=== PATIENT | male | born 1945 | race Caucasian/White ===

== ENCOUNTER 2020-07-29 14:37 | Emergency (ER) | payer MEDICARE ==
[~2020-07-29] VITALS: Ht 175.3 cm; Wt 89.8 kg
[2020-07-29] MEDS ORDERED: Bamlanivimab Fact Sheet MISC ONE (14:45)
[2020-07-29] MEDS ORDERED: Bamlanivimab 700 MG in NS 110 ML IVPB SCH (15:00)
--- NOTE | 2020-07-29 15:19 | NUR ---
ED Nurse Note: Pt was tested COVID + today. Pt started having symptoms 3 days ago. HE had cough, bodyaches, chills. Denies NVD. Pt is alert nad orientedx4, ambulatory. IV line started. He has been seen by [facility].
[2020-07-29 15:21] VITALS: BP 125/83
--- NOTE | 2020-07-29 15:45 | Emergency Room Report ---
History of Present Illness General Chief Complaint: Upper Respiratory Illness Source: Patient Present Illness HPI 74-year-old male pmhx of DM presents with fatigue, chills, loss of smell, recent diagnosis of covid 19, no aggravating or alleviating factors severity is moderate, constant. Patient presents for monoclonal antibody. 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 COVID-19 Screening: Positive COVID-19 COVID-19 Testing Source: nasal Patient History Past Medical History: see triage record Reviewed Nursing Documentation: PMH: Agreed; PSxH: Agreed Nursing Documentation-PMH Past Medical History: No History, Except For Hx Diabetes: Yes Review of Systems All Other Systems: negative except mentioned in HPI Physical Exam Vital Signs Date Time Temp Pulse Resp B/P (MAP) Pulse Ox O2 Delivery O2 Flow Rate FiO2 07/29/20 15:01 98.2 88 17 133/87 (102) 97 Room Air 07/29/20 15:21 98 Sp02 EP Interpretation: reviewed, normal General Appearance: well appearing, no apparent distress, alert Head: normocephalic, atraumatic Eyes: bilateral eye PERRL, bilateral eye EOMI ENT: uvula midline, moist mucus membranes Neck: supple, thyroid normal, supple/symm/no masses Respiratory: lungs clear, no respiratory distress, no retraction, no accessory muscle use Cardiovascular #1: normal peripheral pulses, regular rate, rhythm, no edema, no gallop, no murmur Gastrointestinal: non tender, soft, no guarding, no rebound Musculoskeletal: normal inspection Neurologic: alert, oriented x3 Psychiatric: mood/affect normal Skin: no rash, warm/dry Medical Decision Making Diagnostic Impression: Primary Impression: COVID-19 ER Course 74 year old male presents for monoclonal antibody therapy Patient with Covid, patient tolerated monoclonal infusion without any side effects Patient will follow up with his PCP disposition home with return precautions Isolation precautions Last Vital Signs Date Time Temp Pulse Resp B/P (MAP) Pulse Ox O2 Delivery O2 Flow Rate FiO2 07/29/20 15:21 98.2 86 16 125/83 98 Room Air 07/29/20 15:21 98 Disposition: HOME, SELF-CARE Condition: Stable Referrals: [facility] Patient Instructions: Upper Respiratory Infection, Adult Additional Instructions: The patient was provided with discharge instructions, notified to follow-up with a primary care doctor and or specialist in the next 24-48 hours, and to return to the ED if they have worsening of their symptoms. Please note that this report is being documented using [employer]AG[employer] technology. This can lead to erroneous entry secondary to incorrect interpretation by the dictating instrument. Imer Dickinson MD Jul 29, 2020 15:45
--- NOTE | 2020-07-29 16:30 | NUR ---
ED Nurse Note: Infusion ended. No adverse affects.
[2020-07-29 17:46] VITALS: BP 130/78
--- NOTE | 2020-07-29 17:46 | NUR ---
ER DISCHARGE NOTE: Patient is cleared to be discharged per ERMD, pt is aox4, on room air, with stable vital signs. pt was given dc and prescription instructions, pt was able to verbalize understanding, pt id band and iv site removed without complications. pt is able to ambulate with steady gait. pt took all belongings. Pt instructed regarding COVID and given COVID packet.
== END 2020-07-29 17:47 | disposition home or self-care (01) ==
LOC: EMR 14:55
DX: U07.1 COVID-19 (principal); Z23 Encounter for immunization; R53.83 Other fatigue; R43.9 Unspecified disturbances of smell and taste; R68.83 Chills (without fever); E11.9 Type 2 diabetes mellitus without complications
CPT/HCPCS: 96365; 99284; Q0239